=== PATIENT | female | born 1990 | race American Indian/Alaskan Native ===

== ENCOUNTER 2017-05-29 14:20 | Observation (INO) | payer MEDICAID ==
[2017-05-29 14:31] VITALS: RESP 18
[2017-05-29 14:56] LABS: RBC URINE 2 /hpf (0-3); URINE BILIRUBIN NEGATIVE (NEGATIVE); URINE BLOOD NEGATIVE (NEGATIVE); URINE COLOR Yellow (YELLOW); URINE GLUCOSE (UA) NORMAL (Normal); URINE KETONE NEGATIVE (NEGATIVE); URINE LEUKOCYTE ESTERASE TRACE Leu/uL (Negative); URINE PROTEIN NEGATIVE (NEGATIVE); WBC URINE 3 /hpf (0-5)
[2017-05-29] MEDS ORDERED: Sodium Chloride 0.9% 1,000 ML IV ONE (15:05)
--- NOTE | 2017-05-29 15:05 | C.PDOC ---
History Of Present Illness 26 year old female presents to the ED with complaints of right pelvic pain for four days and nausea for two days. Patient notes period is late and she is . Patient denies fever or other associated symptoms. Time Seen by Provider: 05/29/17 14:43 Chief Complaint (Nursing): Abdominal Pain History Per: Patient History/Exam Limitations: no limitations Onset/Duration Of Symptoms: Days Current Symptoms Are (Timing): Still Present Quality Of Discomfort: "Pain" Associated Symptoms: denies: Fever, Chills, Nausea, Vomiting, Diarrhea Recent travel outside of the [place]: No Additional History Per: Prior Records Abnormal Vaginal Bleeding: No : 4 Para: 3 Miscarriage: 0 Past Medical History Reviewed: Historical Data, Nursing Documentation, Vital Signs Vital Signs: Last Vital Signs Temp 97.7 F 05/29/17 14:30 Pulse 93 H 05/29/17 14:30 Resp 18 05/29/17 14:30 BP 115/75 05/29/17 14:30 Pulse Ox 100 05/29/17 16:33 - Medical History PMH: Asthma Family History: States: Unknown Family Hx - Social History Hx Alcohol Use: No Hx Substance Use: No - Immunization History Hx Tetanus Toxoid Vaccination: No Hx Influenza Vaccination: Yes Hx Pneumococcal Vaccination: No Review Of Systems Constitutional: Negative for: Fever, Chills Cardiovascular: Negative for: Chest Pain Respiratory: Negative for: Cough, Shortness of Breath Gastrointestinal: Negative for: Nausea, Vomiting, Diarrhea Genitourinary: Positive for: Pelvic Pain. Negative for: Vaginal Bleeding Physical Exam - Physical Exam Appears: Non-toxic, No Acute Distress Skin: Warm, Dry Head: Atraumatic Eye(s): bilateral: Normal Inspection, EOMI Oral Mucosa: Moist Neck: Supple Chest: Symmetrical, No Deformity Cardiovascular: Rhythm Regular Respiratory: No Rhonchi, No Wheezing Gastrointestinal/Abdominal: Soft, No Tenderness, No Distention, No Guarding, No Rebound Extremity: Normal ROM, No Tenderness Neurological/Psych: Oriented x3, Normal Speech, Normal Cognition ED Course And Treatment - Laboratory Results Result Diagrams: 05/29/17 15:18 05/29/17 15:18 O2 Sat by Pulse Oximetry: 100 (room air ) - CT Scan/US transabdominal pelvic ultrasound Other Rad Studies (CT/US): Read By Radiologist, Radiology Report Reviewed CT/US Interpretation: Impression: Thickened endometrium measures approximately 2.1 cm in thickness. No evidence of intrauterine gestational sac. No evidence of intrauterine gestational sac. If indeed the patient is based on serum beta HCG values, the sonographic findings represent either: Very early IUP ; embryonic demise; ectopic gestation. Follow-up with serial quantitative serum beta HCG measurements and post OBGYN follow-up as clinically indicated, since ectopic gestation cannot be excluded based only on sonographic findings. 2.2 x 1.6 x 2.0 cm probable corpus luteal cyst, right ovary. Small pelvic free fluid. Progress Note: Labs and US were ordered. Patient was given Zofran. ED OBSERVATION Discharge: Yes Date of observation admission: 05/29/17 Time of observation admission: 14:30 - Observation admission statement Patient is being placed in observation because:: pelvic pain, nausea - Goals of Observation Goals of observation are:: NEG ECTOPIC, SX IMPROVE - Progress Note Progress Note: 05/29/17 16:41 IMPROVED. VSS ABD NEG. ADVISED NEED FOR REPEAT BETA IN 2-3 DAYS. Disposition Counseled Patient/Family Regarding: Studies Performed, Diagnosis, Need For Followup - Disposition Disposition: HOME/ ROUTINE Disposition Time: 16:42 Condition: IMPROVED - POA Present On Arrival: None - Clinical Impression Clinical Impression: , Vomiting, Pelvic pain - Scribe Statement The provider has reviewed the documentation as recorded by the Scribmarcos Miller All medical record entries made by the Tamela were at my direction and personally dictated by me. I have reviewed the chart and agree that the record accurately reflects my personal performance of the history, physical exam, medical decision making, and the department course for this patient. I have also personally directed, reviewed, and agree with the discharge instructions and disposition.
[2017-05-29 15:21] LABS: BASO # 0.1 K/uL (0.0-0.2); BASO % 0.9 % (0.0-2.0); EOS # 0.1 K/uL (0.0-0.7); HEMATOCRIT 36.5 % (34.0-47.0); LYMPH % 33.7 % (20.0-40.0); MEAN CELL VOLUME 93.8 fL (81.0-99.0); MEAN CORPUSCULAR HEMOGLOBIN 31.1 pg (27.0-31.0); MEAN CORPUSCULAR HGB CONC 33.2 g/dL (33.0-37.0); MEAN PLATELET VOLUME 8.4 fL (7.2-11.7); MONO # 0.6 K/uL (0.0-0.8); MONO % 9.5 % (0.0-10.0); RED CELL DISTRIBUTION WIDTH 12.2 % (11.5-14.5); WHITE BLOOD COUNT 5.8 K/uL (4.8-10.8)
[2017-05-29 15:30] LABS: CHLORIDE 104 mmol/L (98-107); POTASSIUM 3.6 mmol/L (3.6-5.2); SODIUM 138 mmol/L (132-148)
[2017-05-29 15:32] LABS: ALB/GLOB RATIO 1.1 (1.0-2.1); AST/SGOT 17 U/L (14-36); BILIRUBIN,TOTAL 0.7 mg/dL (0.2-1.3); BLOOD UREA NITROGEN 10 mg/dL (7-17); CARBON DIOXIDE 22 mmol/L (22-30); GFR AFRICAN-AMERICAN > 60; TOTAL PROTEIN 7.1 g/dL (6.3-8.3)
[2017-05-29 15:33] LABS: ALKALINE PHOSPHATASE 65 U/L (38-126); ALT/SGPT 23 U/L (9-52); CALCIUM 8.8 mg/dl (8.6-10.4); GLUCOSE,RANDOM 79 mg/dL (65-105)
--- NOTE | 2017-05-29 16:25 | US ---
Indication: Pain, rule out ectopic Comparison: None available. Technique: Real-time transabdominal pelvic ultrasound was performed. In addition a transvaginal pelvic ultrasound was necessary to better depict pelvic anatomy. Findings: The uterus measures approximately 9.2 x 4.7 x 6.3 cm. No evidence of intrauterine gestational sac. Endometrium measures approximately 2.1 cm in thickness. Cervix length measures approximately 3.2 cm. The right ovary measures 3.6 x 2.2 x 3.2 cm and contains a complex lesion, likely corpus luteal cyst measuring approximately 2.2 x 1.6 x 2.0 cm. The left ovary measures 2.7 x 1.5 x 3.1. Blood flow was demonstrated to both ovaries. Small pelvic free fluid. Impression: Thickened endometrium measures approximately 2.1 cm in thickness. No evidence of intrauterine gestational sac. No evidence of intrauterine gestational sac. If indeed the patient is based on serum beta HCG values, the sonographic findings represent either: Very early IUP; embryonic demise; ectopic gestation. Follow-up with serial quantitative serum beta HCG measurements and post OBGYN follow-up as clinically indicated, since ectopic gestation cannot be excluded based only on sonographic findings. 2.2 x 1.6 x 2.0 cm probable corpus luteal cyst, right ovary. Small pelvic free fluid.
[2017-05-29 17:08] VITALS: BP 108/79; PULSE 90; TEMP 98.6; O2SAT 98
== END 2017-05-29 16:42 | disposition home or self-care (01) ==
LOC: C.ER 14:20 → C.9OBSV 14:30
PROVIDERS: ADMIT Emergency Medicine; ATTEND Emergency Medicine
DX: R10.2 Pelvic and perineal pain (principal); Z32.01 Encounter for pregnancy test, result positive
CPT/HCPCS: 76830; 76856; 80053; 81001; 84702; 84703; 85025; 96361; 96374; 99283; G0378; J2405; J7040

== ENCOUNTER 2017-06-13 23:46 | Emergency (ER) | payer MEDICAID ==
[2017-06-13 23:58] VITALS: RESP 20
[2017-06-14 00:20] LABS: BASO # 0.1 K/uL (0.0-0.2); BASO % 1.1 % (0.0-2.0); EOS # 0.2 K/uL (0.0-0.7); EOS % 2.2 % (0.0-4.0); HEMATOCRIT 33.1 % (34.0-47.0); LYMPH # 2.4 K/uL (1.0-4.3); MEAN CELL VOLUME 93.8 fL (81.0-99.0); MEAN CORPUSCULAR HEMOGLOBIN 32.1 pg (27.0-31.0); MEAN CORPUSCULAR HGB CONC 34.2 g/dL (33.0-37.0); MONO # 0.6 K/uL (0.0-0.8); MONO % 9.1 % (0.0-10.0); NRBC % 0.1 % (0.0-2.0); RED CELL DISTRIBUTION WIDTH 12.3 % (11.5-14.5); WHITE BLOOD COUNT 7.2 K/uL (4.8-10.8)
[2017-06-14 00:30] LABS: RBC URINE 2 /hpf (0-3); URINE BILIRUBIN NEGATIVE (NEGATIVE); URINE BLOOD NEGATIVE (NEGATIVE); URINE COLOR Yellow (YELLOW); URINE GLUCOSE (UA) NORMAL (Normal); URINE KETONE NEGATIVE (NEGATIVE); URINE LEUKOCYTE ESTERASE NEG Leu/uL (Negative); URINE PROTEIN NEGATIVE (NEGATIVE); WBC URINE 2 /hpf (0-5)
--- NOTE | 2017-06-14 00:30 | C.PDOC ---
History Of Present Illness Patient presents to ED c/o suprapubic and right pelvic pain since this morning, associated with nausea. She is currently 5 weeks , . Patient was seen in ED on 05/29/17 for similar symptoms, but states today the pain was worse. She denies dysuria/hematuria, vaginal bleeding/discharge, vomiting/ diarrhea. Time Seen by Provider: 06/14/17 00:06 Chief Complaint (Nursing): Abdominal Pain History Per: Patient History/Exam Limitations: no limitations Onset/Duration Of Symptoms: Hrs Current Symptoms Are (Timing): Still Present Severity: Mild Location Of Pain/Discomfort: RLQ, Suprapubic Quality Of Discomfort: "Pain" Associated Symptoms: Nausea Past Medical History Reviewed: Historical Data, Nursing Documentation, Vital Signs Vital Signs: Last Vital Signs Temp 98.1 F 06/14/17 02:17 Pulse 98 H 06/14/17 02:17 Resp 20 06/14/17 02:17 BP 96/67 L 06/14/17 02:17 Pulse Ox 98 06/14/17 02:17 - Medical History PMH: Asthma Family History: States: No Known Family Hx - Social History Hx Alcohol Use: No Hx Substance Use: No - Immunization History Hx Tetanus Toxoid Vaccination: No Hx Influenza Vaccination: Yes Hx Pneumococcal Vaccination: No Review Of Systems Except As Marked, All Systems Reviewed And Found Negative. Cardiovascular: Negative for: Chest Pain Respiratory: Negative for: Shortness of Breath Gastrointestinal: Positive for: Nausea. Negative for: Vomiting, Abdominal Pain , Diarrhea Genitourinary: Positive for: Pelvic Pain. Negative for: Dysuria, Hematuria, Vaginal Discharge, Vaginal Bleeding Physical Exam - Physical Exam Appears: Well, Non-toxic, No Acute Distress Skin: Normal Color, Warm, Dry Oral Mucosa: Moist Cardiovascular: Rhythm Regular Respiratory: Normal Breath Sounds, No Rales, No Rhonchi, No Wheezing Gastrointestinal/Abdominal: Bowel Sounds, Soft, Tenderness (mild RLQ/suprapubic TTP), No Distention, No Guarding, No Rebound Back: Normal Inspection, No CVA Tenderness Neurological/Psych: Oriented x3 ED Course And Treatment - Laboratory Results Result Diagrams: 06/14/17 00:17 06/14/17 00:17 O2 Sat by Pulse Oximetry: 100 (RA) Pulse Ox Interpretation: Normal - CT Scan/US transvaginal US Other Rad Studies (CT/US): Read By Radiologist, Radiology Report Reviewed CT/US Interpretation: EXAM: US , Transvaginal. CLINICAL HISTORY: 26 years old, female; Pain; complicated by abdominal or pelvic pain; Right lower. quadrant; First trimester; Gestational age or lmp: 05/06/17; ; Additional info: Pelvic pain,. . TECHNIQUE: Real-time transvaginal obstetrical ultrasound of the maternal pelvis and a first trimester . with image documentation. Transvaginal imaging was used for better evaluation of the fetus and. adnexa. COMPARISON: No relevant prior studies available. FINDINGS: Gestation: A single intrauterine gestational sac is identified measuring 14 mm, corresponding to an. approximate gestational weeks and 4 days. A normal-appearing yolk sac is also detected. pole is also noted measuring 2.3 mm, corresponding to an approximate gestational age of 5. weeks and 5 days. cardiac activity is detected at a rate of 112 beats per minute. Placenta/amniotic fluid: Cannot be adequately evaluated due to the early gestational age. Uterus/cervix: Cervix measures 3.5 cm, and is closed. Ovaries: The left ovary is unremarkable in echogenicity and size measuring 2.8 x 1.5 x 2.5 cm. The right ovary is unremarkable in size measuring 3.5 x 2.5 x 2.9 cm. A well-circumscribed anechoic. focus is detected within the right ovary measuring 2.4 cm in greatest dimension, sonographically a. corpus luteal cyst. [facility]. [facility] Radiology [facility]. Final Radiology Report [id number]. Name: CARLY PRUETT Age: 26Years F Date: 06/14/2017. SSN: [id number] : . Study: US TRANSVAGINAL Requesting Physician: ALEXEI ADLER. Images: 97. Addl Studies: Provided Clinical History: pelvic pain, . CONFIDENTIALITY STATEMENT. This transmission is confidential and is intended to be a privileged communication. It is intended only for the use of the addressee. Access to this. message by anyone else is unauthorized. If you are not the intended recipient, any disclosure, copying, distribution or any action taken, or omitted to. be taken in reliance on it is prohibited and may be unlawful. If you received this communication in error, please notify us by telephone, so that return. of this document to us can be arranged. Page 2 of 2. Free fluid: No free fluid. IMPRESSION: Single intrauterine gestation with an approximate gestational age of 5 weeks and 5 days. cardiac activity is identified. Right-sided corpus luteal cyst. Thank you for allowing us to participate in the care of your patient. Dictated and Authenticated by: Jana Reynolds MD RLQ US Other Rad Studies (CT/US): Read By Radiologist, Radiology Report Reviewed CT/US Interpretation: EXAM: US Abdomen Limited, Appendix. CLINICAL HISTORY: 26 years old, female; Pain; Other: Rlq; ; Additional info: Rlq pain, eval appendix. TECHNIQUE: Real-time ultrasound of the right lower quadrant with image documentation. COMPARISON: No relevant prior studies available. FINDINGS: Appendix: Appendix is not visualized. Free fluid: No free fluid. IMPRESSION: The appendix is not visualized. Thank you for allowing us to participate in the care of your patient. Dictated and Authenticated by: Jana Reynolds MD. 06/14/2017 1:40 AM Eastern Time ([place] & [place]) Progress Note: Blood work, UA, transvaginal and RLQ US ordered and reviewed. Patient given PO tylenol. Reevaluation Time: 02:10 Reassessment Condition: Improved (On reassessment, patient is resting comfortably, has no current pain. On exam, abdomen is soft and nontender. Blood work and UA unremarkable. Transvaginal US shows IUP and right ovarian cyst. Abd US unable to visualize appendix. My suspcion for appendicitis is low. Patient understands it has not been adequately visualized, and that if her symptoms worsen she needs to return to ED immediately for MRI. Otherwise, she was instructed to follow up with warp spinner within 1 week.) Medical Decision Making Medical Decision Making: differential diagnoses considered: UTI, appendicitis, ovarian cyst, ovarian torison, ectopic , kidney stone, colitis, cystitis, PID/cervicitis, miscarriage Disposition Counseled Patient/Family Regarding: Studies Performed, Diagnosis, Need For Followup - Disposition Referrals: [facility] [Outside] Disposition: HOME/ ROUTINE Disposition Time: 02:10 Condition: STABLE Additional Instructions: FOLLOW UP WITH TRUCK SALES REPRESENTATIVE WITHIN 1 WEEK USE TYLENOL IF NEEDED FOR PAIN RETURN TO EMERGENCY ROOM IF SYMPTOMS WORSEN Instructions: Abdominal Pain in (ED) Forms: [facility] (Peruvian) Print Language: SINHALA - POA Present On Arrival: None - Clinical Impression Clinical Impression: Pelvic pain affecting
[2017-06-14 00:38] LABS: ALB/GLOB RATIO 1.2 (1.0-2.1); ALKALINE PHOSPHATASE 66 U/L (38-126); ALT/SGPT 29 U/L (9-52); AST/SGOT 18 U/L (14-36); BILIRUBIN,TOTAL 0.7 mg/dL (0.2-1.3); BLOOD UREA NITROGEN 7 mg/dL (7-17); CARBON DIOXIDE 20 mmol/L (22-30); CHLORIDE 102 mmol/L (98-107); GFR AFRICAN-AMERICAN > 60; GLUCOSE,RANDOM 85 mg/dL (65-105); POTASSIUM 3.6 mmol/L (3.6-5.2); SODIUM 133 mmol/L (132-148); TOTAL PROTEIN 6.9 g/dL (6.3-8.3)
--- NOTE | 2017-06-14 01:40 | US ---
EXAM: US Abdomen Limited, Appendix CLINICAL HISTORY: 26 years old, female; Pain; Other: Rlq; ; Additional info: Rlq pain, eval appendix TECHNIQUE: Real-time ultrasound of the right lower quadrant with image documentation. COMPARISON: No relevant prior studies available. FINDINGS: Appendix: Appendix is not visualized. Free fluid: No free fluid. IMPRESSION: The appendix is not visualized.
--- NOTE | 2017-06-14 01:58 | US ---
EXAM: US , Transvaginal CLINICAL HISTORY: 26 years old, female; Pain; complicated by abdominal or pelvic pain; Right lower quadrant; First trimester; Gestational age or lmp: 05/06/17; ; Additional info: Pelvic pain, TECHNIQUE: Real-time transvaginal obstetrical ultrasound of the maternal pelvis and a first trimester with image documentation. Transvaginal imaging was used for better evaluation of the fetus and adnexa. COMPARISON: No relevant prior studies available. FINDINGS: Gestation: A single intrauterine gestational sac is identified measuring 14 mm, corresponding to an approximate gestational weeks and 4 days. A normal-appearing yolk sac is also detected. pole is also noted measuring 2.3 mm, corresponding to an approximate gestational age of 5 weeks and 5 days. cardiac activity is detected at a rate of 112 beats per minute. Placenta/amniotic fluid: Cannot be adequately evaluated due to the early gestational age. Uterus/cervix: Cervix measures 3.5 cm, and is closed. Ovaries: The left ovary is unremarkable in echogenicity and size measuring 2.8 x 1.5 x 2.5 cm. The right ovary is unremarkable in size measuring 3.5 x 2.5 x 2.9 cm. A well-circumscribed anechoic focus is detected within the right ovary measuring 2.4 cm in greatest dimension, sonographically a corpus luteal cyst. Free fluid: No free fluid. IMPRESSION: Single intrauterine gestation with an approximate gestational age of 5 weeks and 5 days. cardiac activity is identified. Right-sided corpus luteal cyst.
[2017-06-14 02:29] VITALS: BP 96/67; PULSE 98; TEMP 98.1
[2017-06-14 03:20] VITALS: O2SAT 100
== END 2017-06-14 02:19 | disposition home or self-care (01) ==
LOC: C.ER 23:46
DX: O26.891 Other specified pregnancy related conditions, first trimester (principal); R10.2 Pelvic and perineal pain; Z3A.01 Less than 8 weeks gestation of pregnancy

== ENCOUNTER 2017-09-06 14:01 | Emergency (ER) | payer MEDICAID, OTHER ==
[2017-09-06 15:57] LABS: BASO % 0.5 % (0.0-2.0); EOS # 0.1 K/uL (0.0-0.7); EOS % 1.6 % (0.0-4.0); HEMATOCRIT 33.2 % (34.0-47.0); LYMPH # 1.7 K/uL (1.0-4.3); LYMPH % 23.6 % (20.0-40.0); MEAN CELL VOLUME 96.4 fL (81.0-99.0); MEAN CORPUSCULAR HEMOGLOBIN 32.5 pg (27.0-31.0); MEAN CORPUSCULAR HGB CONC 33.7 g/dL (33.0-37.0); MEAN PLATELET VOLUME 8.1 fL (7.2-11.7); MONO # 0.6 K/uL (0.0-0.8); MONO % 8.5 % (0.0-10.0); NRBC % 0.1 % (0.0-2.0); RED CELL DISTRIBUTION WIDTH 11.9 % (11.5-14.5); WHITE BLOOD COUNT 7.4 K/uL (4.8-10.8)
[2017-09-06 15:59] LABS: RBC URINE < 1 /hpf (0-3); URINE BILIRUBIN NEGATIVE (NEGATIVE); URINE BLOOD NEGATIVE (NEGATIVE); URINE COLOR Yellow (YELLOW); URINE GLUCOSE (UA) NORMAL (Normal); URINE KETONE NEGATIVE (NEGATIVE); URINE LEUKOCYTE ESTERASE NEG Leu/uL (Negative); URINE PROTEIN NEGATIVE (NEGATIVE); WBC URINE 1 /hpf (0-5)
--- NOTE | 2017-09-06 16:14 | C.PDOC ---
History Of Present Illness 26 y/o female currently 17 weeks presents to ED with complaints of generalized body itching for 2 days. Patient states itching is worse on back, includes palms and soles. Patient denies abdominal pain, vaginal bleeding, vaginal discharge or any other complaints at this time. Pt has tried OTC lotions without relief. No change in urine, stool or skin color. Time Seen by Provider: 09/06/17 14:38 Chief Complaint (Nursing): Abnormal Skin Integrity History Per: Patient History/Exam Limitations: no limitations Onset/Duration Of Symptoms: Days Current Symptoms Are (Timing): Still Present Quality Of Symptoms: Itching Past Medical History Reviewed: Historical Data, Nursing Documentation, Vital Signs Vital Signs: Last Vital Signs Temp 98.1 F 09/06/17 17:44 Pulse 72 09/06/17 17:44 Resp 18 09/06/17 17:44 BP 127/68 09/06/17 17:44 Pulse Ox 100 09/06/17 17:44 - Medical History PMH: Asthma Surgical History: No Surg Hx Family History: States: No Known Family Hx - Social History Hx Alcohol Use: No Hx Substance Use: No - Immunization History Hx Tetanus Toxoid Vaccination: No Hx Influenza Vaccination: Yes Hx Pneumococcal Vaccination: No Review Of Systems Constitutional: Negative for: Fever, Chills Cardiovascular: Negative for: Chest Pain Respiratory: Negative for: Shortness of Breath Gastrointestinal: Negative for: Nausea, Vomiting Skin: Positive for: Rash Neurological: Negative for: Weakness, Numbness Physical Exam - Physical Exam Appears: Non-toxic, No Acute Distress Skin: Normal Color, Warm, Dry Head: Atraumatic, Normacephalic Eye(s): bilateral: Normal Inspection, EOMI Nose: Normal Oral Mucosa: Moist Neck: Normal ROM, Supple Chest: Symmetrical Cardiovascular: Rhythm Regular Respiratory: Normal Breath Sounds, No Accessory Muscle Use, No Rales, No Rhonchi , No Wheezing Gastrointestinal/Abdominal: Soft, No Tenderness, No Guarding, No Rebound, Other (Gravid abdomen appropriate to date) Extremity: Normal ROM, Capillary Refill (<2 seconds) Neurological/Psych: Oriented x3 ED Course And Treatment - Laboratory Results Result Diagrams: 09/06/17 15:47 09/06/17 15:47 O2 Sat by Pulse Oximetry: 98 (RA) Pulse Ox Interpretation: Normal Progress Note: Benadryl given . On re-evaluation, pt notes symptoms have imporved. Case discussed with Dr Kearney, OB legal operations manager, who instructs liver enzyme evaluation and bile acid. Instructed to sent pt home iwth benadryl and f/ u with labs in the clinic. Case discussed with Dr Miles, agreed upon plan and discharge. Pt was instructed to follow up with OB in 1-2 days. Results given . Disposition - Disposition Disposition: HOME/ ROUTINE Disposition Time: 16:44 Condition: STABLE Additional Instructions: Follow up with primary medical doctor in 1-3 days without fail for further evaluation. Take medications as prescribed. Return to the emergency department at any time if symptoms persist or worsen. Prescriptions: DiphenhydrAMINE [Benadryl] 25 mg PO Q6 #20 cap Instructions: Itchy Skin (ED) Forms: [facility] (Japanese) - Clinical Impression Clinical Impression: , Itching - PA / DESK TOP PUBLISHER / Resident Statement MD/DO has reviewed & agrees with the documentation as recorded. - Scribe Statement The provider has reviewed the documentation as recorded by the Jakyibmarcos Robles All medical record entries made by the Tamela were at my direction and personally dictated by me. I have reviewed the chart and agree that the record accurately reflects my personal performance of the history, physical exam, medical decision making, and the department course for this patient. I have also personally directed, reviewed, and agree with the discharge instructions and disposition.
[2017-09-06 16:19] LABS: ALB/GLOB RATIO 1.3 (1.0-2.1); ALKALINE PHOSPHATASE 48 U/L (38-126); ALT/SGPT 37 U/L (9-52); AST/SGOT 24 U/L (14-36); BILIRUBIN,TOTAL 0.8 mg/dL (0.2-1.3); BLOOD UREA NITROGEN 8 mg/dL (7-17); CALCIUM 8.7 mg/dl (8.6-10.4); CARBON DIOXIDE 21 mmol/L (22-30); CHLORIDE 101 mmol/L (98-107); GFR AFRICAN-AMERICAN > 60; GLUCOSE,RANDOM 76 mg/dL (65-105); POTASSIUM 3.8 mmol/L (3.6-5.2); SODIUM 133 mmol/L (132-148); TOTAL PROTEIN 7.6 g/dL (6.3-8.3)
[2017-09-06] MEDS ORDERED: Lactated Ringer's 1,000 ML IV ONE (16:55)
[2017-09-06 16:56] VITALS: TEMP 98.1
[2017-09-06 17:45] VITALS: BP 127/68; PULSE 72; RESP 18
[2017-09-07 08:15] VITALS: O2SAT 98
== END 2017-09-06 18:01 | disposition home or self-care (01) ==
LOC: C.ER 14:01
DX: O26.899 Other specified pregnancy related conditions, unspecified trimester (principal); Z3A.00 Weeks of gestation of pregnancy not specified
CPT/HCPCS: 80053; 81001; 83789; 84703; 85025; 96360; 99284; J7120

== ENCOUNTER 2017-11-16 17:18 | Emergency (ER) | payer OTHER ==
[2017-11-16 17:59] LABS: SQUAMOUS EPITHIAL 11 /hpf (0-5); URINE BACTERIA FEW (<OCC); URINE BILIRUBIN NEGATIVE (NEGATIVE); URINE BLOOD NEGATIVE (NEGATIVE); URINE CLARITY Hazy (Clear); URINE COLOR Yellow (YELLOW); URINE GLUCOSE (UA) NORMAL (Normal); URINE NITRATE NEGATIVE (NEGATIVE); URINE PROTEIN NEGATIVE (NEGATIVE)
[2017-11-16 18:00] LABS: URINE LEUKOCYTE ESTERASE 1+ Leu/uL (Negative)
--- NOTE | 2017-11-16 18:20 | OBHP ---
Datetime: 11/16/2017 17:41 IP Adm Impression: , intrauterine ; No Active Labor IP Chief Complaint Other: spotting and lower abd pain IP Adm Impression Other: Bacterial vaginosis IP Admit Plan: Discharge home Admit Comment, IP Provider: CC: sharp lower abdominal pain and pink discharge HPI: Patient is a 27 y/o F at 27 weeks and 4 days (ARTI: 02/10/18, LMP: 05/06/17) who presents today for lower abdominal pain that woke her from her sleep. The pain started in the left lower quad rant but radiates throughout her lower abdomen. She explains the pain as sharp and 8/10 at its worst, now being 6/10. She did not take any medication for pain. Pain worsens with movement. She noti megan pink coloration of toilet paper when urinating but no gross blood in toilet paper or vaginal blee ding. She denies any vaginal fluid or abnormal discharge. She reports feeling the baby move normally. She denies any contractions. She had some nausea with the pain, but no vomiting. Current : anemia, last saw Dr. Kearney in October OBhx: G1 2012: miscarriage, for a few weeks, passed at home with no medical follow up G2 2014: elective at a few weeks, given oral medications at [facility] G3: current Professional Driver hx: menstruation: 13 Triad: 13, regular, 4 days hx of uterine fibroids and right ovarian cysts PMHx: anemia Psurg: none Allergies: shellfish- throat closes Famhx: Mom- 50 years old with 2 strokes Father- none known Home meds: PNV, Iron Social: denies alcohol, tobacco, drugs denies any abuse no STIs not sexually active, FOB is boyfriend of 1 year Exam see exam section A_P: 27 y/o F at 27 weeks and 4 days with lower abdominal pain and pick discharge. 1. Afebrile, stable 2. EFM and TOCO 3. Urinalysis 4. r/o labor 5. plans discussed with Dr. Cody Contreras, PGY1 OB attending Speculum exam done creamy whte discharge in vagina.cervix close ua -contaminated specimen abdomen soft and nontedner A/P Patient with round ligament pain and bacterial vagonoisis -advised to take tylenol for severe pain -script for flagyl given -follow up in office in [address] kearney Pelvic Type - PN: Adequate Extremities - PN: Normal Abdomen - PN: Normal Lungs - PN: Normal Heart - PN: Normal HEENT - PN: Normal General - PN: Normal Contraction Comments Provider: none Comments, ACOG Physical Exam: speculum exam vulva no lesions vagina creamy white discharge in avult cervix closed EGA AdmitDate IP: 28.0 Vital Signs Provider: Reviewed; Within Normal Limits IP Chief Complaint: Other FHR Category Provider Fetus A: Category I Dilatation, Provider: 0 Genitourinary Exam: Abnormal
[2017-11-16 22:26] VITALS: BP 124/99; PULSE 86
== END 2017-11-16 18:15 | disposition home or self-care (01) ==
LOC: C.EROB 17:18
DX: O26.892 Other specified pregnancy related conditions, second trimester (principal); R10.2 Pelvic and perineal pain; O23.592 Infection of other part of genital tract in pregnancy, second trimester; Z3A.27 27 weeks gestation of pregnancy